=== PATIENT | male | born 1990 | race Two or more races ===

== ENCOUNTER 2025-02-07 08:57 | Day surgery (SDC) | payer MEDICAID ==
[2025-02-05 14:24] LABS: Hematocrit 37.2 % (41.0-53.0); Hemoglobin 12.7 g/dL (13.5-17.5); Mean Corpuscular Hemoglobin 29.4 pg (28.0-32.0); Mean Corpuscular Volume 86.1 fL (80.0-100.0); Nucleated Red Blood Cells % 0.0 %
[2025-02-05 14:29] LABS: Urine Protein, UAD Negative (Negative)
[2025-02-05 14:38] LABS: Alanine Aminotransferase 14 U/L (7-40); Albumin 4.5 g/dL (3.2-4.8); Alkaline Phosphatase 67 U/L (46-116); Anion Gap 9 (5-15); BUN/Creatinine Ratio 9.8 (10.0-20.0); Bilirubin, Total 0.9 mg/dL (0.2-1.0); Blood Urea Nitrogen 9 mg/dL (9-23); Calcium 9.4 mg/dL (8.7-10.4); Carbon Dioxide 29 mmol/L (20-31); Chloride 104 mmol/L (98-107); Glucose 87 mg/dL (74-106); Potassium 4.1 mmol/L (3.5-5.1); Sodium 142 mmol/L (136-145); Total Protein 7.3 g/dL (5.7-8.2)
[2025-02-05 14:40] LABS: INR 1.03 (0.9-1.15); Partial Thromboplastin Time 27.0 SEC (24.5-34.5); Prothrombin Time 10.9 sec (9.3-11.8)
[~2025-02-07] VITALS: Ht 182.9 cm; Wt 70.3 kg
[~2025-02-07 08:57] MED LIST: FLUO1TAB14 PO
[2025-02-07] MEDS ORDERED: MEPERIDINE HCL (25 MG/ML) 1ML VIAL ONE (10:06)
[2025-02-07] MEDS ORDERED: MIDAZOLAM HCL 2MG/2ML 2ml VIAL (1mg/ml) ONE (10:06)
[2025-02-07] MEDS ORDERED: fentaNYL CITRATE 100 MCG/2 ML VL ONE (10:06)
[2025-02-07] MEDS ORDERED: PROPOFOL 10 MG/ML 20 ML IV ONE (10:07)
[2025-02-07] MEDS ORDERED: ONDANSETRON HCL 4 MG/2 ML VIAL ONE (10:07)
[2025-02-07] MEDS: ceFAZolin 2 GM/D5W50ml 50 ML IV ONE (10:20)
[2025-02-07] MEDS ORDERED: hydrALAZINE HCL 20 MG/ML VL IV PRN (10:30)
[2025-02-07] MEDS ORDERED: MIDAZOLAM HCL 2MG/2ML 2ml VIAL (1mg/ml) IV PRN (10:30)
[2025-02-07] MEDS ORDERED: MORPHINE SULFATE 4 MG/ML SYR/VIAL IV PRN (10:30)
[2025-02-07] MEDS ORDERED: ONDANSETRON HCL 4 MG/2 ML VIAL IV PRN (10:30)
[2025-02-07] MEDS ORDERED: SUCCINYLCHOLINE CHLORIDE 20 MG/ML 10ML VIAL IV ONE (10:30)
[2025-02-07] MEDS ORDERED: HYDROmorphone HCL 2 MG/ML VL/or syr IV PRN (10:30)
[2025-02-07] MEDS: BUPIVACAINE 0.5% P/F INJ 10 ML VIAL ONE (10:35)
[2025-02-07] MEDS: LIDOCAINE W/ EPINEPHRINE 1% 20ML VIAL ONE (10:35)
[2025-02-07] MEDS ORDERED: ACE3T PO (11:04)
[2025-02-07 11:14] VITALS: TEMP 97.6; O2SAT 100
--- NOTE | 2025-02-07 11:50 | DVHOP ---
DATE OF SURGERY: 02/07/2025 PREOPERATIVE DIAGNOSIS: Right inguinal hernia. POSTOPERATIVE DIAGNOSIS: Right inguinal hernia. SURGEON: Evan Harris MD GASTROENTEROLOGY PROFESSOR: Merrill Wolf NP ANESTHESIA: General endotracheal. ANESTHESIOLOGIST: Isiah Ward MD PROCEDURE: Repair of right inguinal hernia (direct). DESCRIPTION OF PROCEDURE: Under general anesthesia with the patient's skin prepped and draped and infiltrated with 0.25% Marcaine and 0.5% Xylocaine with epinephrine. The patient's incision was made over the visible palpable bulge in the right groin. The decision was made at that point to deepen the incision with electrocautery through Radha's fascia down onto the fibers of the external oblique aponeurosis. The external inguinal ring was opened and in the direction of the fibers, ilioinguinal nerve was reflected laterally and protected. The cord structures were encircled with a [place] drain retracted laterally. There was a large direct herniation, which was mobilized and reduced and held back with a [place] retractor. Subsequently, the hernia floor was repaired utilizing nonabsorbable sutures through conjoint tendon and reflecting portion of Poupart's fascia. The repair was carried out laterally to accommodate the cord structures without undue compression. The ilioinguinal nerve and cord structures were returned into their normal anatomical position. The testicle was placed back into its normal anatomical position. Wound closed using Monocryl sutures, Dermabond glue, and Steri-Strips. The patient remained stable throughout the procedure and left the operating room following an accurate needle and sponge counts. The patient's family was informed on [phone] phone number. Evan Harris MD PF/HUSEYIN TID: [id number] RECEIPT: [id number]
[2025-02-07 11:55] VITALS: BP 113/60; PULSE 58; RESP 19; O2SAT 97
== END 2025-02-07 12:00 | disposition home or self-care (01) ==
LOC: SUR 08:57
PROVIDERS: ATTEND Surgery
DX: K40.90 Unilateral inguinal hernia, without obstruction or gangrene, not specified as recurrent (principal); F31.89 Other bipolar disorder; Z79.899 Other long term (current) drug therapy; Z98.890 Other specified postprocedural states
CPT/HCPCS: 36415; 49505; 80053; 81001; 85025; 85610; 85730; 86850; 86900; 86901; J0330; J0690; J1100; J2175; J2250; J2405; J2704; J3010; J3490